=== PATIENT | male | born 1965 | race Caucasian/White ===

== ENCOUNTER 2019-05-09 15:14 | Inpatient (IN) | payer OTHER ==
--- NOTE | 2019-05-09 16:01 | BHS.RME ---
Substance Use & Tx History - Substance Use History Alcohol Substance amount: 3 pints Vodka, 5 x 6 pack beer 24 ounce cans Frequency of use: Daily Substance route: Oral Date of Last Use: 05/09/19 Cocaine (Powder) Substance amount: $200 Frequency of use: Daily Substance route: Inhalation (ex: sniffing or snorting) Date of Last Use: 05/08/19 Nicotine Substance amount: 1 pack Frequency of use: Less than 3 times per week Substance route: Smoking Physical/Psych/Mental Status - Behavior General Behavior: Decreased activity - Cooperativeness Cooperativeness: Cooperative - Thinking Thought Processes: Tight Thought content: Future oriented - Physical Health Problems Is patient presently having any pain?: No Does patient presently have any injuries (include location): No Does patient currently have a fever: No CIWA Nausea/Vomitin-Mild Nausea/No Vomiting Muscle Tremors: 2 Anxiety: 1-Mildly Anxious Agitation: 0-Normal Activity Paroxysmal Sweats: No Perspiration Orientation: 0-Oriented Tacttile Disturbances: 0-None Auditory Disturbances: 2-Mild Harshness/Frighten Visual Disturbances: 2-Mild Sensitivity Headache: 4-Moderately Severe CIWA-Ar Total Score: 12
[2019-05-09 16:54] VITALS: BMI 33.1
--- NOTE | 2019-05-09 17:18 | HP ---
CIWA Score Nausea/Vomitin Muscle Tremors: 3 Anxiety: 3 Agitation: 0-Normal Activity Paroxysmal Sweats: 2 Orientation: 0-Oriented Tacttile Disturbances: 0-None Auditory Disturbances: 0-None Visual Disturbances: 0-None Headache: 4-Moderately Severe CIWA-Ar Total Score: 14 - Admission Criteria OASAS Guidelines: Admission for Medically Managed Detox: Requires at least one of the followin. CIWA greater than 12 2. Seizures within the past 24 hours 3. Delirium tremens within the past 24 hours 4. Hallucinations within the past 24 hours 5. Acute intervention needed for co occurring medical disorder 6. Acute intervention needed for co occurring psychiatric disorder 7. Severe withdrawal that cannot be handled at a lower level of care (continued vomiting, continued diarrhea, abnormal vital signs) requiring intravenous medication and/or fluids 8. Admitting History and Physical - Smoking History Smoking history: Current every day smoker Have you smoked in the past 12 months: Yes Aproximately how many cigarettes per day: 2 Admission ROS [facility] Chief Complaint: Alcohol withdrawal symptoms Allergies/Adverse Reactions: Allergies Allergy/AdvReac Type Severity Reaction Status Date / Time No Known Allergies Allergy Verified 05/09/19 16:46 History of Present Illness: 53 years old male with a long history of alcohol dependence (since age 18 years ) is seeking admission to detox. Patient's last detox was at [facility] in 2018 and he reports 6 months of sobriety. This is his first admission to [facility]. He reports medical history of hypertension and psych. history of manic depression, bipolar, insomnia. He denies suicide attempt / suicidal ideation at this time. 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 Exam Limitations: No Limitations - Ebola screening Have you traveled outside of the country in the last 21 days: No Have you had contact with anyone from an Ebola affected area: No Do you have a fever: No - Review of Systems Constitutional: Chills, Malaise, Night Sweats, Changes in sleep EENT: reports: No Symptoms Reported Respiratory: reports: No Symptoms reported Cardiac: reports: No Symptoms Reported GI: reports: Nausea, Poor Appetite, Poor Fluid Intake, Abdominal cramping : reports: No Symptoms Reported Musculoskeletal: reports: No Symptoms Reported Integumentary: reports: Dryness, Flushing Neuro: reports: Headache, Tremors Endocrine: reports: No Symptoms Reported Hematology: reports: No Symptoms Reported Psychiatric: reports: No Sypmtoms Reported, Mood/Affect Appropiate, Orientated x3, Depressed Other Systems: Reviewed and Negative Patient History - Patient Medical History Hx Anemia: No Hx Asthma: No Hx Chronic Obstructive Pulmonary Disease (COPD): No Hx Cancer: No Hx Cardiac Disorders: No Hx Hypertension: Yes (Amlopidine) Hx Hypercholesterolemia: No Hx Pacemaker: No HX Cerebrovascular Accident: No Hx Seizures: No Hx Diabetes: No Hx Gastrointestinal Disorders: No Hx Liver Disease: No Hx Genitourinary Disorders: No Hx Sexually Transmitted Disorders: No Hx Renal Disease (ESRD): No Hx Thyroid Disease: No Hx Human Immunodeficiency Virus (HIV): No (Negative 2018) Hx Hepatitis C: No Hx Depression: Yes Hx Suicide Attempt: No Hx Bipolar Disorder: Yes Hx Schizophrenia: No Other Medical History: Insomnia - Patient Surgical History Past Surgical History: Yes Hx Neurologic Surgery: No Hx Cataract Extraction: No Hx Cardiac Surgery: No Hx Lung Surgery: No Hx Breast Surgery: No Hx Breast Biopsy: No Hx Abdominal Surgery: No Hx Appendectomy: No Hx Cholecystectomy: No Hx Genitourinary Surgery: No Hx Section: No Hx Orthopedic Surgery: No Other Surgical History: Skull fracture - metal plate skull 1998 Anesthesia Reaction: No - PPD History Previous Implant?: Yes (PPD POSITIVE. TREATED WITH INH) Implanted On Prior [facility] Admission?: No PPD to be Administered?: No - Reproductive History Patient is a Female of Child Bearing Age (11 -55 yrs old): No (male) Patient : No - Smoking Cessation Smoking history: Current every day smoker Have you smoked in the past 12 months: Yes Aproximately how many cigarettes per day: 2 Hx Chewing Tobacco Use: No Initiated information on smoking cessation: Yes 'Breaking Loose' booklet given: 05/09/19 - Substance & Tx. History Hx Alcohol Use: Yes Hx Substance Use: Yes Substance Use Type: Alcohol, Cocaine Hx Substance Use Treatment: Yes - Substances abused Alcohol Substance route: Oral Frequency: Daily Amount used: 4 quarts of vodka/whiskey/ 3 packs of beer. Age of first use: 18 Date of last use: 05/07/19 Cocaine Substance route: Inhalation Frequency: 3-6 times per week Amount used: 50 dollars / week Age of first use: 28 Date of last use: 05/09/19 Admission Physical Exam BHS - Vital Signs Vital Signs: Vital Signs - 24 hr 05/09/19 16:46 Temperature 97.9 F Pulse Rate 74 Respiratory 20 Rate Blood Pressure 132/81 Breathalyzer - Breathalyzer Breathalyzer: 0 Urine Drug Screen - Test Device Lot number: [id number] Expiration date: 02/04/21 - Control Is test valid?: Yes - Results Drug screen NEGATIVE: No Urine drug screen results: SALO-Cocaine, BZO-Benzodiazepines Inpatient Rehab Admission - Rehab Decision to Admit Inpatient rehab admission?: No
[2019-05-09] MEDS ORDERED: METHOCARBAMOL 500 MG TABLET PO PRN (17:27)
[2019-05-09] MEDS ORDERED: MAG HYDROX/AL HYDROX/SIMETH 30 ML UNIT-DOSE CUP PO PRN (17:27)
[2019-05-09] MEDS ORDERED: IBUPROFEN 400 MG TABLET (FP) PO PRN (17:27)
[2019-05-09] MEDS ORDERED: BISMUTH SUBSALICYLATE 524 MG/30 ML UD PO PRN (17:27)
[2019-05-09] MEDS ORDERED: MENTHOL/PHENOL 1 EACH UD MM PRN (17:27)
[2019-05-09] MEDS ORDERED: NICOTINE POLACRILEX 2 MG GUM BUC PRN (17:27)
[2019-05-09] MEDS ORDERED: chlordiazePOXIDE HCL 25 MG CAPSULE PO PRN (17:27)
[2019-05-09] MEDS ORDERED: MAGNESIUM CITRATE 300 ML BOTTLE PO PRN (17:27)
[2019-05-09] MEDS ORDERED: ACETAMINOPHEN 325 MG TABLET (FP) PO PRN ×2 (17:27)
[2019-05-09] MEDS ORDERED: MAGNESIUM HYDROX 2400MG/30ML ORAL SUSPENSION 30 ML CUP PO PRN (17:27)
[2019-05-09] MEDS ORDERED: ONDANSETRON *ODT* 4 MG TABLET SL ONE (18:00)
[2019-05-09] MEDS: chlordiazePOXIDE HCL 25 MG CAPSULE PO SCH ×2 (18:27→22:27)
[2019-05-09] MEDS: MELATONIN 5 MG TABLETS PO SCH (22:26)
[2019-05-09] MEDS: THIAMINE HCL 100 MG TABLET (FP) PO SCH (22:26)
[2019-05-10] MEDS: chlordiazePOXIDE HCL 25 MG CAPSULE PO SCH ×4 (06:35→22:31)
--- NOTE | 2019-05-10 08:41 | EKG ---
Test Reason : Blood Pressure : / mmHG Vent. Rate : 054 BPM Atrial Rate : 054 BPM P-R Int : 126 ms QRS Dur : 108 ms QT Int : 476 ms P-R-T Axes : 008 000 018 degrees QTc Int : 451 ms SINUS BRADYCARDIA OTHERWISE NORMAL ECG NO PREVIOUS ECGS AVAILABLE Confirmed by MD GONZÁLEZ, EDOUARD ([id number]) on 05/10/2019 8:41:23 AM Referred By: LYSSA Confirmed By:EDOUARD CLAUDIO MD
[2019-05-10] MEDS: PRENATAL VITAMINS W/ FOLIC ACID TABLET (FP) PO SCH (10:10)
[2019-05-10] MEDS: NICOTINE 14 MG/24 HOURS TOPICAL PATCH TD SCH (10:10)
[2019-05-10 10:36] LABS: HEMATOCRIT 42.1 % (35.4-49); HEMOGLOBIN 14.4 GM/dL (11.7-16.9); MCH 32.3 pg (25.7-33.7); MCHC 34.1 g/dl (32.0-35.9); MEAN CELL VOLUME 94.8 fl (80-96); MEAN PLT VOLUME 8.2 fl (7.5-11.1); PLATELET COUNT 236 K/MM3 (134-434); RBC 4.44 M/mm3 (4.00-5.60); RDW 13.1 % (11.9-15.9); WHITE BLOOD COUNT 5.2 K/mm3 (4.0-10.0)
[2019-05-10 10:56] LABS: ALBUMIN 3.4 g/dl (3.4-5.0); BILIRUBIN,TOTAL 0.8 mg/dL (0.2-1); BLOOD UREA NITROGEN 24.8 mg/dL (7-18); CALCIUM 8.5 mg/dL (8.5-10.1); CREATININE 1.1 mg/dL (0.55-1.3); POTASSIUM 4.2 mmol/L (3.5-5.1); TOT PROT 6.4 g/dl (6.4-8.2)
--- NOTE | 2019-05-10 11:08 | PN ---
[facility] CIWA - CIWA Score Nausea/Vomitin-Mild Nausea/No Vomiting Muscle Tremors: 3 Anxiety: 3 Agitation: 0-Normal Activity Paroxysmal Sweats: 1-Minimal Palms Moist Orientation: 0-Oriented Tacttile Disturbances: 0-None Auditory Disturbances: 0-None Visual Disturbances: 2-Mild Sensitivity Headache: 1-Very Mild CIWA-Ar Total Score: 11 S Progress Note (SOAP) Subjective: 53 years old male admitted on 05/09/19 for alcohol withdrawal sx management treating with librium detox regiment feeling ok ambulating on hallway social with peers in day room Objective: 05/10/19 11:07 Vital Signs Temperature 96.6 F L 05/10/19 08:34 Pulse Rate 72 05/10/19 08:34 Respiratory Rate 18 05/10/19 08:34 Blood Pressure 112/74 05/10/19 08:34 O2 Sat by Pulse Oximetry (%) Laboratory Last Values WBC 5.2 K/mm3 (4.0-10.0) 05/10/19 07:30 RBC 4.44 M/mm3 (4.00-5.60) 05/10/19 07:30 Hgb 14.4 GM/dL (11.7-16.9) 05/10/19 07:30 Hct 42.1 % (35.4-49) 05/10/19 07:30 MCV 94.8 fl (80-96) 05/10/19 07:30 MCH 32.3 pg (25.7-33.7) 05/10/19 07:30 MCHC 34.1 g/dl (32.0-35.9) 05/10/19 07:30 RDW 13.1 % (11.9-15.9) 05/10/19 07:30 Plt Count 236 K/MM3 (134-434) 05/10/19 07:30 MPV 8.2 fl (7.5-11.1) 05/10/19 07:30 Sodium 143 mmol/L (136-145) 05/10/19 07:30 Potassium 4.2 mmol/L (3.5-5.1) 05/10/19 07:30 Chloride 109 mmol/L (98-107) H 05/10/19 07:30 Carbon Dioxide 30 mmol/L (21-32) 05/10/19 07:30 Anion Gap 4 MMOL/L (8-16) L 05/10/19 07:30 BUN 24.8 mg/dL (7-18) H 05/10/19 07:30 Creatinine 1.1 mg/dL (0.55-1.3) 05/10/19 07:30 Est GFR (CKD-EPI)AfAm 89.61 05/10/19 07:30 Est GFR (CKD-EPI)NonAf 77.32 05/10/19 07:30 Random Glucose 107 mg/dL (74-106) H 05/10/19 07:30 Calcium 8.5 mg/dL (8.5-10.1) 05/10/19 07:30 Total Bilirubin 0.8 mg/dL (0.2-1) 05/10/19 07:30 AST 29 U/L (15-37) 05/10/19 07:30 ALT 36 U/L (13-61) 05/10/19 07:30 Alkaline Phosphatase 91 U/L (45-117) 05/10/19 07:30 Total Protein 6.4 g/dl (6.4-8.2) 05/10/19 07:30 Albumin 3.4 g/dl (3.4-5.0) 05/10/19 07:30 lab noted Assessment: 05/10/19 11:07 alcohol withdrawal Plan: librium regiment
--- NOTE | 2019-05-10 11:42 | CONSULT ---
[facility] Psychiatric Consult - Data Date of interview: 05/10/19 Admission source: [facility] Identifying data: Patient is approached at bedside for psychiatric evaluation. As requested by medical providers. Mr Durhma declines. " I cannot walk now. I am tired. I need some sleep." Nursing staff is made aware.
[2019-05-10] MEDS: THIAMINE HCL 100 MG TABLET (FP) PO SCH (22:30)
[2019-05-10] MEDS: MELATONIN 5 MG TABLETS PO SCH (22:31)
[2019-05-11] MEDS: chlordiazePOXIDE HCL 25 MG CAPSULE PO SCH ×4 (05:51→22:52)
[2019-05-11] MEDS: PRENATAL VITAMINS W/ FOLIC ACID TABLET (FP) PO SCH (10:25)
[2019-05-11] MEDS: NICOTINE 14 MG/24 HOURS TOPICAL PATCH TD SCH (10:25)
--- NOTE | 2019-05-11 14:19 | PN ---
S CIWA - CIWA Score Nausea/Vomitin-No Nausea/No Vomiting Muscle Tremors: 2 Anxiety: 3 Agitation: 1-Slight > Activity Paroxysmal Sweats: 2 Orientation: 0-Oriented Tacttile Disturbances: 0-None Auditory Disturbances: 0-None Visual Disturbances: 0-None Headache: 0-None Present CIWA-Ar Total Score: 8 BHS Progress Note (SOAP) Subjective: 53 years old male admitted on 05/09/19 for alcohol withdrawal sx management treating with librium detox regiment tremor restlessness trouble sleep through the night Objective: 05/11/19 14:19 Vital Signs Temperature 96.9 F L 05/11/19 12:37 Pulse Rate 73 05/11/19 12:37 Respiratory Rate 20 05/11/19 12:37 Blood Pressure 112/77 05/11/19 12:37 O2 Sat by Pulse Oximetry (%) Laboratory Last Values WBC 5.2 K/mm3 (4.0-10.0) 05/10/19 07:30 RBC 4.44 M/mm3 (4.00-5.60) 05/10/19 07:30 Hgb 14.4 GM/dL (11.7-16.9) 05/10/19 07:30 Hct 42.1 % (35.4-49) 05/10/19 07:30 MCV 94.8 fl (80-96) 05/10/19 07:30 MCH 32.3 pg (25.7-33.7) 05/10/19 07:30 MCHC 34.1 g/dl (32.0-35.9) 05/10/19 07:30 RDW 13.1 % (11.9-15.9) 05/10/19 07:30 Plt Count 236 K/MM3 (134-434) 05/10/19 07:30 MPV 8.2 fl (7.5-11.1) 05/10/19 07:30 Sodium 143 mmol/L (136-145) 05/10/19 07:30 Potassium 4.2 mmol/L (3.5-5.1) 05/10/19 07:30 Chloride 109 mmol/L (98-107) H 05/10/19 07:30 Carbon Dioxide 30 mmol/L (21-32) 05/10/19 07:30 Anion Gap 4 MMOL/L (8-16) L 05/10/19 07:30 BUN 24.8 mg/dL (7-18) H 05/10/19 07:30 Creatinine 1.1 mg/dL (0.55-1.3) 05/10/19 07:30 Est GFR (CKD-EPI)AfAm 89.61 05/10/19 07:30 Est GFR (CKD-EPI)NonAf 77.32 05/10/19 07:30 Random Glucose 107 mg/dL (74-106) H 05/10/19 07:30 Calcium 8.5 mg/dL (8.5-10.1) 05/10/19 07:30 Total Bilirubin 0.8 mg/dL (0.2-1) 05/10/19 07:30 AST 29 U/L (15-37) 05/10/19 07:30 ALT 36 U/L (13-61) 05/10/19 07:30 Alkaline Phosphatase 91 U/L (45-117) 05/10/19 07:30 Total Protein 6.4 g/dl (6.4-8.2) 05/10/19 07:30 Albumin 3.4 g/dl (3.4-5.0) 05/10/19 07:30 RPR Titer Nonreactive (NONREACTIVE) 05/10/19 07:30 lab noted Assessment: 05/11/19 14:19 alcohol withdrawal Plan: librium regiment
[2019-05-11] MEDS: THIAMINE HCL 100 MG TABLET (FP) PO SCH (22:51)
[2019-05-11] MEDS: MELATONIN 5 MG TABLETS PO SCH (22:52)
[2019-05-12] MEDS ORDERED: chlordiazePOXIDE HCL 10 MG CAPSULE PO PRN
[2019-05-12] MEDS: chlordiazePOXIDE HCL 10 MG CAPSULE PO SCH ×4 (05:51→22:43)
[2019-05-12] MEDS: PRENATAL VITAMINS W/ FOLIC ACID TABLET (FP) PO SCH (10:12)
[2019-05-12] MEDS: NICOTINE 14 MG/24 HOURS TOPICAL PATCH TD SCH (10:12)
--- NOTE | 2019-05-12 13:37 | PN ---
[facility] CIWA - CIWA Score Nausea/Vomitin-Mild Nausea/No Vomiting Muscle Tremors: 1-None Visible, but [place] Anxiety: 2 Agitation: 2 Paroxysmal Sweats: No Perspiration Orientation: 0-Oriented Tacttile Disturbances: 1-Very Mild Itch/Numbness Auditory Disturbances: 0-None Visual Disturbances: 0-None Headache: 1-Very Mild CIWA-Ar Total Score: 8 BHS Progress Note (SOAP) Subjective: alert,irritable,anxious,interrupted sleep,aching pain Objective: 05/12/19 13:36 Vital Signs Temperature 97.1 F L 05/12/19 09:00 Pulse Rate 82 05/12/19 09:00 Respiratory Rate 18 05/12/19 09:00 Blood Pressure 105/79 05/12/19 09:00 O2 Sat by Pulse Oximetry (%) Assessment: 05/12/19 13:36 withdrawal symptom Plan: continue detox librium regimen
[2019-05-12] MEDS: MELATONIN 5 MG TABLETS PO SCH (22:43)
[2019-05-12] MEDS: THIAMINE HCL 100 MG TABLET (FP) PO SCH (22:43)
[2019-05-13] MEDS: chlordiazePOXIDE HCL 10 MG CAPSULE PO SCH ×2 (06:03→18:36)
[2019-05-13] MEDS: NICOTINE 14 MG/24 HOURS TOPICAL PATCH TD SCH (10:34)
[2019-05-13] MEDS: PRENATAL VITAMINS W/ FOLIC ACID TABLET (FP) PO SCH (10:35)
--- NOTE | 2019-05-13 12:17 | PN ---
[facility] CIWA - CIWA Score Nausea/Vomitin-No Nausea/No Vomiting Muscle Tremors: None Anxiety: 2 Agitation: 0-Normal Activity Paroxysmal Sweats: 2 Orientation: 0-Oriented Tacttile Disturbances: 0-None Auditory Disturbances: 0-None Visual Disturbances: 0-None Headache: 0-None Present CIWA-Ar Total Score: 4 BHS Progress Note (SOAP) Subjective: c/o mild withdrawal symptoms. Objective: 05/13/19 12:16 Vital Signs 05/13/19 05/13/19 05/13/19 06:30 06:32 08:43 Temperature 96.3 F L 96.9 F L Pulse Rate 69 73 Respiratory 18 18 18 Rate Blood Pressure 103/66 135/88 Laboratory Last Values WBC 5.2 K/mm3 (4.0-10.0) 05/10/19 07:30 RBC 4.44 M/mm3 (4.00-5.60) 05/10/19 07:30 Hgb 14.4 GM/dL (11.7-16.9) 05/10/19 07:30 Hct 42.1 % (35.4-49) 05/10/19 07:30 MCV 94.8 fl (80-96) 05/10/19 07:30 MCH 32.3 pg (25.7-33.7) 05/10/19 07:30 MCHC 34.1 g/dl (32.0-35.9) 05/10/19 07:30 RDW 13.1 % (11.9-15.9) 05/10/19 07:30 Plt Count 236 K/MM3 (134-434) 05/10/19 07:30 MPV 8.2 fl (7.5-11.1) 05/10/19 07:30 Sodium 143 mmol/L (136-145) 05/10/19 07:30 Potassium 4.2 mmol/L (3.5-5.1) 05/10/19 07:30 Chloride 109 mmol/L (98-107) H 05/10/19 07:30 Carbon Dioxide 30 mmol/L (21-32) 05/10/19 07:30 Anion Gap 4 MMOL/L (8-16) L 05/10/19 07:30 BUN 24.8 mg/dL (7-18) H 05/10/19 07:30 Creatinine 1.1 mg/dL (0.55-1.3) 05/10/19 07:30 Est GFR (CKD-EPI)AfAm 89.61 05/10/19 07:30 Est GFR (CKD-EPI)NonAf 77.32 05/10/19 07:30 Random Glucose 107 mg/dL (74-106) H 05/10/19 07:30 Calcium 8.5 mg/dL (8.5-10.1) 05/10/19 07:30 Total Bilirubin 0.8 mg/dL (0.2-1) 05/10/19 07:30 AST 29 U/L (15-37) 05/10/19 07:30 ALT 36 U/L (13-61) 05/10/19 07:30 Alkaline Phosphatase 91 U/L (45-117) 05/10/19 07:30 Total Protein 6.4 g/dl (6.4-8.2) 05/10/19 07:30 Albumin 3.4 g/dl (3.4-5.0) 05/10/19 07:30 RPR Titer Nonreactive (NONREACTIVE) 05/10/19 07:30 Labs noted. Assessment: 05/13/19 12:16 AOX3, in no acute respiratory distress. Full ROM, ambulating in the unit. Mild Withdrawal symptoms. For d/c tomorrow. Plan: continue detox. D/C in AM.
[2019-05-13] MEDS: MELATONIN 5 MG TABLETS PO SCH (23:02)
[2019-05-13] MEDS: THIAMINE HCL 100 MG TABLET (FP) PO SCH (23:02)
[2019-05-14] MEDS ORDERED: chlordiazePOXIDE HCL 10 MG CAPSULE PO ONE (05:00)
[2019-05-14 09:33] VITALS: BP 103/77; PULSE 65; TEMP 96.9
[2019-05-14] MEDS: NICOTINE 14 MG/24 HOURS TOPICAL PATCH TD SCH (10:00)
[2019-05-14] MEDS: PRENATAL VITAMINS W/ FOLIC ACID TABLET (FP) PO SCH (10:00)
--- NOTE | 2019-05-14 13:55 | DS ---
[facility] Detox Discharge Summary Admission Date: 05/09/19 Discharge Date: 05/14/19 - History Present History: Alcohol Dependence Additional Comments: 53 years old male admitted on 05/09/19 for alcohol withdrawal sx management treated with librium detox regiment Mr Durham has completed the librium regimen and is tolerated well alert oriented x 3 respiratory clear lungs bilaterally on auscultation abdomen soft round obese no rebound tenderness extremities full range of motion Pertinent Past History: time for discharge 34 minutes - Physical Exam Results Vital Signs: Vital Signs Temperature 96.9 F L 05/14/19 09:30 Pulse Rate 65 05/14/19 09:30 Respiratory Rate 18 05/14/19 09:30 Blood Pressure 103/77 05/14/19 09:30 O2 Sat by Pulse Oximetry (%) Pertinent Admission Physical Exam Findings: alcohol withdrawal Laboratory Last Values WBC 5.2 K/mm3 (4.0-10.0) 05/10/19 07:30 RBC 4.44 M/mm3 (4.00-5.60) 05/10/19 07:30 Hgb 14.4 GM/dL (11.7-16.9) 05/10/19 07:30 Hct 42.1 % (35.4-49) 05/10/19 07:30 MCV 94.8 fl (80-96) 05/10/19 07:30 MCH 32.3 pg (25.7-33.7) 05/10/19 07:30 MCHC 34.1 g/dl (32.0-35.9) 05/10/19 07:30 RDW 13.1 % (11.9-15.9) 05/10/19 07:30 Plt Count 236 K/MM3 (134-434) 05/10/19 07:30 MPV 8.2 fl (7.5-11.1) 05/10/19 07:30 Sodium 143 mmol/L (136-145) 05/10/19 07:30 Potassium 4.2 mmol/L (3.5-5.1) 05/10/19 07:30 Chloride 109 mmol/L (98-107) H 05/10/19 07:30 Carbon Dioxide 30 mmol/L (21-32) 05/10/19 07:30 Anion Gap 4 MMOL/L (8-16) L 05/10/19 07:30 BUN 24.8 mg/dL (7-18) H 05/10/19 07:30 Creatinine 1.1 mg/dL (0.55-1.3) 05/10/19 07:30 Est GFR (CKD-EPI)AfAm 89.61 05/10/19 07:30 Est GFR (CKD-EPI)NonAf 77.32 05/10/19 07:30 Random Glucose 107 mg/dL (74-106) H 05/10/19 07:30 Calcium 8.5 mg/dL (8.5-10.1) 05/10/19 07:30 Total Bilirubin 0.8 mg/dL (0.2-1) 05/10/19 07:30 AST 29 U/L (15-37) 05/10/19 07:30 ALT 36 U/L (13-61) 05/10/19 07:30 Alkaline Phosphatase 91 U/L (45-117) 05/10/19 07:30 Total Protein 6.4 g/dl (6.4-8.2) 05/10/19 07:30 Albumin 3.4 g/dl (3.4-5.0) 05/10/19 07:30 RPR Titer Nonreactive (NONREACTIVE) 05/10/19 07:30 lab oted Vital Signs Temperature 96.9 F L 05/14/19 09:30 Pulse Rate 65 05/14/19 09:30 Respiratory Rate 18 05/14/19 09:30 Blood Pressure 103/77 05/14/19 09:30 O2 Sat by Pulse Oximetry (%) - Treatment Hospital Course: Detox Protocol Followed, Detoxed Safely, Responded well, Discharged Condition Good, Rehab Referral Accepted Patient has Accepted a Rehab Referral to: [facility] - Medication Discharge Medications: Ambulatory Orders NK [No Known Home Medication] 05/09/19 - Diagnosis (1) Opioid dependence, uncomplicated Status: Acute (2) Nicotine abuse Status: Acute (3) Substance induced mood disorder Status: Suspected - AMA Did Patient Leave Against Medical Advice: No CIWA Score - CIWA Score Nausea/Vomitin-No Nausea/No Vomiting Muscle Tremors: None Anxiety: 1-Mildly Anxious Agitation: 0-Normal Activity Paroxysmal Sweats: 1-Minimal Palms Moist Orientation: 0-Oriented Tacttile Disturbances: 0-None Auditory Disturbances: 0-None Visual Disturbances: 0-None Headache: 0-None Present CIWA-Ar Total Score: 2
== END 2019-05-14 10:34 | disposition home or self-care (01) | DRG 773 ==
LOC: YASAS 15:14 → Y3N 17:42
PROVIDERS: ADMIT Allergy & Immunology; ATTEND Allergy & Immunology
PROC: HZ2ZZZZ Detoxification Services for Substance Abuse Treatment (ICD-10-PCS; principal; 2019-05-09)
DX: F10.230 Alcohol dependence with withdrawal, uncomplicated (principal); F11.20 Opioid dependence, uncomplicated; F17.210 Nicotine dependence, cigarettes, uncomplicated; F19.24 Other psychoactive substance dependence with psychoactive substance-induced mood disorder; F31.9 Bipolar disorder, unspecified; I10 Essential (primary) hypertension; G47.00 Insomnia, unspecified; R76.11 Nonspecific reaction to tuberculin skin test without active tuberculosis
CPT/HCPCS: 36415; 71046-TC-FY; 80053; 85027; 86593; 93005; 93010; Q0162